=== PATIENT | male | born 1960 | race African-American/Black ===

== ENCOUNTER 2019-05-23 11:08 | Emergency (ER) | payer MEDICARE, OTHER ==
[~2019-05-23] VITALS: Ht 157.5 cm; Wt 63.5 kg
--- NOTE | 2019-05-23 12:00 | Diagnostic Imaging Report ---
INDICATION: Knee Pain COMPARISON: None 3 views of the left knee were obtained. FINDINGS: Bones are heterogeneous and osteopenic. There is narrowing of the joint space. No fracture or malalignment seen IMPRESSION: Osteoarthritis
[2019-05-23] MEDS ORDERED: NAPROXEN250 MG ORAL (12:15)
--- NOTE | 2019-05-23 12:15 | Emergency Room Report ---
History of Present Illness General Chief Complaint: Lower Extremity Injury Source: Patient Present Illness HPI 59-year-old male presents with left knee pain after falling from his wheelchair , did not hit head, endorses sharp pain worse with touching the knee, no alleviating factors severity is mild, intermittent patient presents for evaluation COVID-19 risk:Contact w/high r: No COVID-19 risk:Travel to affect: No Has patient experienced ruiz: No Allergies: Coded Allergies: No Known Allergies (Unverified , 05/23/19) Patient History Past Medical History: see triage record Reviewed Nursing Documentation: PMH: Agreed; PSxH: Agreed Nursing Documentation-PMH Past Medical History: No History, Except For Hx Hypertension: Yes Hx Diabetes: Yes Hx Seizures: Yes Review of Systems All Other Systems: negative except mentioned in HPI Physical Exam Vital Signs Date Time Temp Pulse Resp B/P (MAP) Pulse Ox O2 Delivery O2 Flow Rate FiO2 05/23/19 11:04 98.6 96 16 184/105 (131) 98 Room Air General Appearance: well appearing, no apparent distress Head: normocephalic, atraumatic ENT: hearing grossly normal, normal voice Neck: full range of motion, supple Respiratory: no respiratory distress, speaking full sentences Musculoskeletal: other - Patient with bilateral amputations, left knee unremarkable small abrasion Neurologic: alert, normal gait Psychiatric: mood/affect normal Skin: no rash Medical Decision Making Diagnostic Impression: Primary Impression: Abrasion Additional Impression: Knee pain, left Qualified Codes: M25.562 - Pain in left knee ER Course 59-year-old male presents with knee abrasion no evidence of fracture no evidence of bursitis Symptomatic care disposition home with return precautions follow-up with PCP Procedure: XRAY Knee 3v LT INDICATION: Knee Pain COMPARISON: None 3 views of the left knee were obtained. FINDINGS: Bones are heterogeneous and osteopenic. There is narrowing of the joint space. No fracture or malalignment seen IMPRESSION: Osteoarthritis Dictated By: George Lawson MD Electronically Signed By: George Lawson MD Signed Date/Time 05/23/19 8563 CC: Mo Connor MD Last Vital Signs Date Time Temp Pulse Resp B/P (MAP) Pulse Ox O2 Delivery O2 Flow Rate FiO2 05/23/19 11:04 98.6 96 16 184/105 (131) 98 Room Air Disposition: HOME, SELF-CARE Condition: Stable Scripts Naproxen* (NAPROSYN*) 250 Mg Tablet 250 MG ORAL TID PRN for For Pain, #20 TAB 0 Refills Prov: Mo Connor MD 05/23/19 Referrals: NOT CHOSEN IPA/,REFERRING (PCP) [facility] Humberto Ayerse Fune[facility] Patient Instructions: Abrasion, [id number] Additional Instructions: The patient was provided with discharge instructions, notified to follow-up with a primary care doctor and or specialist in the next 24-48 hours, and to return to the ED if they have worsening of their symptoms. Please note that this report is being documented using DRAGON technology. This can lead to erroneous entry secondary to incorrect interpretation by the dictating instrument. Mo Connor MD May 23, 2019 12:15
[2019-05-23 12:25] VITALS: BP 162/94
== END 2019-05-23 12:25 | disposition home or self-care (01) ==
LOC: EDBD 11:08 → EMR 11:30
DX: S80.212A Abrasion, left knee, initial encounter (principal); M25.562 Pain in left knee; M17.12 Unilateral primary osteoarthritis, left knee; I10 Essential (primary) hypertension; E11.9 Type 2 diabetes mellitus without complications; G40.909 Epilepsy, unspecified, not intractable, without status epilepticus; W05.0XXA Fall from non-moving wheelchair, initial encounter; Y93.9 Activity, unspecified; Y92.9 Unspecified place or not applicable
CPT/HCPCS: 99283